=== PATIENT | male | born 2000 | race African-American/Black ===

== ENCOUNTER → 2024-02-26 03:06 | Outpatient (CLI) | payer BC, SELFPAY ==
--- NOTE | 2024-02-26 06:30 | DI.US_ITS ---
Exam(s) US ABDOMEN EXAM: US ABDOMEN CLINICAL HISTORY: LUQ pain, R10.12 TECHNIQUE: Ultrasound abdomen performed using standard protocol. COMPARISON: No exams were available for comparison FINDINGS: Examination limited by overlying bowel gas. ABDOMINAL AORTA AND IVC: Visualized portions normal caliber. PANCREAS: Normal where visualized. Significant portions were obscured by overlying bowel. LIVER: Normal. Hepatopetal flow in the Portal Vein. No evidence of a hepatic mass. The liver measure s 14.6 cm long. GALLBLADDER:No evidence of cholelithiasis. No evidence of wall thickening. No pericholecystic fluid i dentified. BILIARY SYSTEM: Common bile duct measures < 7 mm. No intrahepatic biliary ductal dilation. URIBE'S SIGN: Negative. KIDNEYS: Kidneys are symmetric in size. No evidence of renal calculi. No evidence of hydronephrosis. No renal mass or cyst identified. SPLEEN: Not enlarged. ASCITES: None seen. IMPRESSION: Normal sonographic appearance of the upper abdomen. DATA REPOSITORY:
--- NOTE | 2024-02-26 09:15 | DI.RAD_ITS ---
Exam(s) XR SCOLIOSIS T-L SPINE EXAM: XR SCOLIOSIS T-L SPINE CLINICAL HISTORY: Scoliosis evaluation. TECHNIQUE: 2D digital imaging was performed. COMPARISON: No exams were available for comparison FINDINGS: Scoliosis: There is 9 degrees of right convex curvature measured from the superior endplate of L1 to the inferior endplate of L5. Vertebrae: No anomalies seen. No hypertrophy is identified. Remainder of the visualized osseous and soft tissue structures: No acute findings. Three a have a nor mal appearance. No fractures or lytic or sclerotic lesions are identified at this time. IMPRESSION: 1. 9 degrees right convex curvature of the lumbar spine as described. 2. No vertebral body anomalies are seen. DATA REPOSITORY: RADIATION DOSE DELIVERED:
== END ==
PROVIDERS: Visit Provider Physician Assistant
DX: M41.86 Other forms of scoliosis, lumbar region (principal)
CPT/HCPCS: 72082; 76700

== ENCOUNTER 2024-06-22 16:27 | Outpatient (REF) | payer BC, SELFPAY ==
[2024-06-24 14:05] LABS: Hemoglobin S Screen Negative (Negative)
== END 2024-06-22 16:28 | disposition home or self-care (01) ==
LOC: LBN 16:27
PROVIDERS: Visit Provider Nurse Practitioner Family
DX: Z02.5 Encounter for examination for participation in sport (principal)
CPT/HCPCS: 85660